=== PATIENT | female | born 1975 | race Two or more races ===

== ENCOUNTER → 2024-06-29 | Outpatient (REF) | payer OTHER, MEDICAID ==
[2024-07-01 19:51] LABS: HPV APTIMA Not Detected (Not Detected)
== END ==
LOC: M SFHCWAGY 17:56
PROVIDERS: ATTEND Nurse Practitioner Family
DX: Z12.4 Encounter for screening for malignant neoplasm of cervix (principal); Z11.51 Encounter for screening for human papillomavirus (HPV)
CPT/HCPCS: 87624; G0123

== ENCOUNTER → 2024-09-14 | Outpatient (REF) | payer OTHER | LOC: M PLALAB 14:44 | PROVIDERS: ATTEND Obstetrics & Gynecology | DX: N87.9 Dysplasia of cervix uteri, unspecified (principal) ==